=== PATIENT | male | born 1945 | race Caucasian/White ===

== ENCOUNTER → 2018-05-05 | Outpatient (CLI) | payer MEDICARE, OTHER ==
[~2018-05-05] MED LIST: CIPRO250 M2 PO; COZAAR 25 MG TA25 M1 PO; DUONEB 2.5-0.5 M3 ML INH; FLEXERIL PO; FLOMAX0.4 MG PO; HYDROCODONE-AP1 EAC6 PO; LEVSIN0.125 MG PO; MEDROLDOSEPACK PO; MOBIC15 MG PO; NEURONTIN 300300 M1 PO; OMEPRAZOLE 20 M20 M1 PO; PREDNISONE50 MG PO; PROAIR HFA8.5 GM INH; PROSCAR 5MG TABL5 MG PO
--- NOTE | 2018-05-23 10:00 | PAINCON ---
[address] [address] PAIN MANAGEMENT CONSULTATION Name: ABBY BEAR Room: [facility] NaomiJs#: [id number] Admission: 05/05/18 Attend Phys: Jamshid Contreras MD Discharge: Date of : 49 Report #: [id number] THIS REPORT FOR: //name// CC: Amanda Contreras DATE OF SERVICE: 05/05/2018 CHIEF COMPLAINT: Pain in the hands and neck. It is radiating from my shoulder, mostly on the right. FOLLOWUP HISTORY: The patient is a 72-year-old gentleman who has been referred to the pain clinic for evaluation. The patient has been noticing pain and discomfort over the last few months, which has gotten quite a bit worse. He has had some discomfort for years. At this juncture, he has noticed that his pain increased. He has undergone physical therapy with minimal relief. He has tried Flexeril, meloxicam as well as Tylenol. In spite of this, he continues to have pain and discomfort, which is disconcerting. He has been told that he has degenerative disk disease in his cervical spine. He has recently had an MRI, which confirms those findings. He continues to have persistent pain in his neck, radiating down the right shoulder associated with numbness and tingling. Denies any trauma. Does have some muscle tension and discomfort in the posterior portion of his head on the left and right side. His MRI showed that he did have some herniated disk at C3-C4, C4-C5, C5-C6. ALLERGIES: TETRACYCLINE. CURRENT MEDICATIONS: 1. Finasteride 5 mg daily. 2. Fish oil 1200 mg 1 capsule. 3. Vitamin D3 1000 units 1 capsule. 4. Zinc 100 mg. 5. Potassium 75 mg. 6. Meloxicam 15 mg. 7. Omeprazole 20 mg. 8. Losartan 25 mg 1/2 tablet daily. 9. Cyclobenzaprine 5 mg p.r.n. for spasms. The patient has stopped taking this medication. 10. The patient has used a Medrol Dosepak in the past. PAST MEDICAL HISTORY: 1. Asthma. 2. Hypertension. 3. Joint disease/arthritis. 4[place] [address] PAIN MANAGEMENT CONSULTATION Name: ABBY BERA Room: [facility]#: [id number] Admission: 05/05/18 Attend Phys: Jamshid Contreras MD Discharge: Date of : 49 Report #: [id number] PAST SURGICAL HISTORY: 1. Elbow surgery. 2. Rotator cuff repair. 3. Right hand surgery involving the left thumb, which was caught in a press. 4. Lithotripsy. 5. Right carpal tunnel surgery. 6. Right hand trigger release 7. Bilateral elbow surgeries. 8. Left foot surgery. 9. Cataract surgery. 10. Bilateral Lasix surgeries. 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 REVIEW OF SYSTEMS: Generally good health, fatigue, weakness, headaches, wears glasses, cataracts/glaucoma, shortness of breath, kidney stones, numbness and tingling sensation, lightheadedness, dizziness, recurrent headaches, back pain, joint stiffness, joint pain. LABORATORY DATA: Cervical spine MRI from [facility] dated 04/05/2018 indicates: 1. C2-C3, mild disk desiccation. Mild facet arthropathy. No stenosis. 2. C3-C4, mild disk desiccation, 1-2 mm disk protrusion. Facet arthropathy. No stenosis. 3. C4-C5, disk desiccation, 2 mm disk protrusion. Central canal patent. Facet arthropathy. No stenosis. 4. C5-C6, disk desiccation. Posterior annular fissure, 2 mm disk protrusion. Facet arthropathy. Mild to moderate left foraminal stenosis. 5. C6-C7, disk desiccation. No bulging or protrusion. Facet arthropathy. No stenosis. 6. C7-T1, no significant disk bulge or herniation. No significant spinal stenosis. PAIN CLINIC ASSESSMENT/PQRS: 1. History of osteoarthritis. The patient is not being treated for osteoarthritis. The patient has not been treated for rheumatoid arthritis. 2. Height 5 feet 8 inches, weight 165 pounds, BMI is 25.2. 3. Vital Signs: Blood pressure 155/90, heart rate 96, respiratory rate 16, room air saturation 96%, temperature 98.2. 4. Pain score 2/10. 5. Fall history: The patient has not fallen in the last 3 months. 6. Blood thinner. The patient is not on a blood thinning medication. 7. Hypertension. The patient is being treated for hypertension. 8. Opioid therapy greater than 6 weeks. The patient is not on opioid regimen. 9. Risk assessment tool. 10. [place] [address] PAIN MANAGEMENT CONSULTATION Name: ABBY BEAR: [facility]#: [id number] Admission: 05/05/18 Attend Phys: Jamshid Contreras MD Discharge: Date of : 49 Report #: [id number] 11. Recreational drug use. The patient denies use of recreational drugs. 12. Tobacco: The patient denies use of tobacco. 13. Alcohol: The patient denies use of alcoholic beverages. PHYSICAL EXAMINATION: GENERAL: The patient is a well-developed, well-nourished white male. Appears his stated age. He is alert and oriented x 3. Affect is appropriate. Speech is fluent. The patient notes some tender areas in the left as well as in the right occipital area. Complains of pain that radiates down his neck into the right shoulder and down into the right arm. Muscle strength judged to be 5/5 for the major muscle groups in the upper extremity. Deep tendon reflexes are difficult to assess secondary to the patient's inability to comply. The patient without significant scoliosis, kyphosis or lordosis. The patient has a mechanically amputated thumb. He states that he got this caught in a press. Lower extremity muscle strength is judged to be 5/5 for the major muscle groups. Deep tendon reflexes are difficult to assess secondary to patient's inability to comply. Forward bending was not problematic. Lumbar extension were limited and within normal limits. IMPRESSION: 1. Pain in the neck with radiation down to the right arm and shoulder. 2. Asthma. 3. Hypertension. 4. Joint disease/arthritis. 5. Renal stones. RECOMMENDATIONS: We discussed treatment options with the patient. Risks and benefits of an epidural steroid injection were discussed. At this juncture, we will try a conservative approach. The patient will try a Medrol Dosepak at this juncture. He will also be given a script for Neurontin. He will take it 1 tablet p.o. t.i.d. The patient has been given a schedule to slowly increase his medication to lessen the likelihood of problems. He will follow up in the near future. If his pain continues to be problematic, we will consider the possibility of a cervical epidural steroid injection. We would like to thank you for letting us participate in his care. We hope he continues to improve. <ELECTRONICALLY SIGNED> By: Jamshid Contreras MD 05/23/18 1000 1412 1804N. Kang Contreras MD /nt
== END ==
LOC: M.PC 04:56
DX: M54.2 Cervicalgia (principal); M79.601 Pain in right arm; M25.511 Pain in right shoulder; J45.909 Unspecified asthma, uncomplicated; I10 Essential (primary) hypertension; M19.90 Unspecified osteoarthritis, unspecified site; N20.0 Calculus of kidney

== ENCOUNTER → 2018-08-31 | Outpatient (CLI) | payer MEDICARE, OTHER | LOC: M.RAD 08:17 | DX: R13.10 Dysphagia, unspecified (principal) ==

== ENCOUNTER 2020-09-07 17:59 | Observation (INO) | payer MEDICARE, OTHER ==
[~2020-09-07] VITALS: Ht 170.2 cm; Wt 80.7 kg
[2020-09-07 18:21] VITALS: BP 157/94
[2020-09-07] MEDS ORDERED: ASA81BEC PO (18:28)
[2020-09-07] MEDS ORDERED: FISH OIL 1,0001 EAC9 PO (18:29)
[2020-09-07] MEDS ORDERED: SUPER THERAVIT1 EACH PO (18:29)
[2020-09-07 18:30] LABS: ABSOLUTE EOSINOPHILS 0.1 thou/uL (0.0-0.7); ABSOLUTE LYMPHOCYTES 1.8 thou/uL (0.8-5.3); ABSOLUTE MONOCYTES 0.6 thou/uL (0.0-1.2); ABSOLUTE NEUTROPHILS 5.5 thou/uL (1.6-8.1); BASOPHILS 0.6 %; EOSINOPHILS 1.4 %; HEMATOCRIT 46.3 % (42.0-52.0); HEMOGLOBIN 15.9 gm/dL (14.0-18.0); LYMPHOCYTES 22.7 %; MCH 32.7 pg (26.0-34.0); MCHC 34.3 g/dL (28.0-37.0); MCV 95.4 fL (80.0-100.0); MONOCYTES 7.1 %; MPV 7.6 fl. (7.2-11.1); NUCLEATED RBCS 0 /100WBC; PLATELET COUNT* 235 thou/uL (150-400); POLYS 68.2 %; RBC 4.85 mil/uL (4.50-6.00); RDW-CV 12.7 % (10.5-14.5)
[2020-09-07 18:42] LABS: APTT 24.5 Seconds (25.0-31.3); PROTIME 10.2 Seconds (9.20-11.50)
[2020-09-07 18:48] LABS: ALBUMIN 3.8 g/dL (3.4-5.0); CALCIUM 9.2 mg/dL (8.5-10.1); CREATININE 1.1 mg/dL (0.6-1.3); MAGNESIUM 2.2 mg/dL (1.8-2.4); TOTAL BILIRUBIN 0.3 mg/dL (<0.1-1.0); TOTAL PROTEIN 7.8 g/dL (6.4-8.2)
[2020-09-07 21:30] VITALS: BP 144/84
[2020-09-07 21:32] VITALS: BP 148/102
[2020-09-08 01:07] VITALS: BP 125/78
[2020-09-08 04:32] VITALS: BP 131/86
[2020-09-08 08:00] VITALS: BP 151/79
[2020-09-08 10:56] LABS: ABSOLUTE EOSINOPHILS 0.1 thou/uL (0.0-0.7); ABSOLUTE LYMPHOCYTES 1.3 thou/uL (0.8-5.3); ABSOLUTE MONOCYTES 0.5 thou/uL (0.0-1.2); ABSOLUTE NEUTROPHILS 4.7 thou/uL (1.6-8.1); BASOPHILS 0.4 %; EOSINOPHILS 1.1 %; HEMATOCRIT 41.8 % (42.0-52.0); HEMOGLOBIN 14.2 gm/dL (14.0-18.0); LYMPHOCYTES 20.1 %; MCH 32.2 pg (26.0-34.0); MCHC 33.9 g/dL (28.0-37.0); MCV 95.2 fL (80.0-100.0); MONOCYTES 7.2 %; MPV 7.7 fl. (7.2-11.1); NUCLEATED RBCS 0 /100WBC; PLATELET COUNT* 227 thou/uL (150-400); POLYS 71.2 %; RBC 4.39 mil/uL (4.50-6.00); RDW-CV 12.4 % (10.5-14.5); WBC 6.6 thou/uL (4.0-11.0)
[2020-09-08 11:16] LABS: ALBUMIN 3.3 g/dL (3.4-5.0); ALKALINE PHOSPHATASE 72 U/L (46-116); ANION GAP 7 mmol/L (7-16); BUN 14 mg/dL (7-18); CHLORIDE 109 mmol/L (98-107); CO2 26 mmol/L (21-32); GLUCOSE 120 mg/dL (70-99); SGOT 21 U/L (15-37); SGPT 24 U/L (30-65); SODIUM 142 mmol/L (136-145); TOTAL BILIRUBIN 0.4 mg/dL (<0.1-1.0); TOTAL PROTEIN 6.8 g/dL (6.4-8.2); TROPONIN-I LEVEL <0.06 ng/mL (<0.06)
[2020-09-08 13:04] VITALS: BP 146/91
[2020-09-08 16:14] VITALS: BP 125/80
[2020-09-08 20:00] VITALS: BP 142/92
[2020-09-09] VITALS: BP 130/86
[2020-09-09 04:00] VITALS: BP 140/81
[2020-09-09 05:23] LABS: ANION GAP 9 mmol/L (7-16); CALCIUM 9.8 mg/dL (8.5-10.1); CHLORIDE 107 mmol/L (98-107); CHOLESTEROL 183 mg/dL (<200); CO2 26 mmol/L (21-32); CREATININE 0.9 mg/dL (0.6-1.3); GLUCOSE 89 mg/dL (70-99); HDL CHOLESTEROL 42 mg/dL (>40); LDL CHOLESTEROL 126 mg/dL (<100); POTASSIUM 3.8 mmol/L (3.5-5.1); SODIUM 142 mmol/L (136-145); TC:HDL 4.4 Ratio (Not establshd); TRIGLYCERIDE 77 mg/dL (<150); VLDL 15 mg/dL (<40)
[2020-09-09 05:43] LABS: BUN 15 mg/dL (7-18)
[2020-09-09 05:44] LABS: SERUM ASSESSMENT Clear
[2020-09-09 08:00] VITALS: BP 149/95
--- NOTE | 2020-09-09 10:23 | EKG ---
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 Writer: LUIS : 1945 Requested By: Baljit Boggs Order Number: [id number] MD: Nigel Alvarenga Measurements Intervals [place] Rate: 117 P: 46 VT: 165 QRS: -88 QRSD: 92 T: 39 QT: 320 QTc: 447 Interpretive Statements Sinus tachycardia Probable left atrial enlargement Left anterior fascicular block Abnormal R-wave progression, late transition Baseline wander in lead(s) V1,V2 Compared to ECG 06/20/2016 01:32:50 no change Electronically Signed On 09-09-2020 10:23:17 BIRTH ATTENDANT by Nigel Alvarenga [email or web address] <ELECTRONICALLY SIGNED> By: Nigel Alvarenga MD, [facility] 09/09/20 1023 10 10 Nigel Alvarenga MD, [facility] /EPI
--- NOTE | 2020-09-09 10:29 | EKG ---
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: : 1945 Requested By: Huber Delgado Order Number: [id number] MD: Nigel Alvarenga Measurements Intervals [place] Rate: 88 P: 43 FL: 174 QRS: -77 QRSD: 99 T: 16 QT: 374 QTc: 453 Interpretive Statements Sinus rhythm Left anterior fascicular block Low voltage, extremity leads Abnormal R-wave progression, late transition Compared to ECG 09/07/2020 18:11:29 Low QRS voltage now present Sinus tachycardia no longer present Electronically Signed On 09-09-2020 10:29:29 EQUIPMENT RECORDS SUPERVISOR by Nigel Alvarenga [email or web address] <ELECTRONICALLY SIGNED> By: Nigel Alvarenga MD, FACC 09/09/20 1029 1126 1126 Nigel Alvarenga MD, [facility] /EPI
[2020-09-09 12:00] VITALS: BP 155/100
[2020-09-09 16:00] VITALS: BP 119/88
--- NOTE | 2020-09-09 17:23 | CARDNUC ---
[place] [address] CARDIAC NUCLEAR IMAGING REPORT Name: CHEMAABBY Pippa Room: [address] Kaylene#: [id number] Admission: 09/07/20 Attend Phys: Ivette Rodriguez, Discharge: Date of : 49 Date of Service: 09/09/20 1722 Report #: [id number] THIS REPORT FOR: cc: Amanda Cheung Ahmad W. DO Liston, Michael J. MD [facility] ~ APPROVED REPORT Study performed: 09/09/2020 12:50:53 Exam: Nuclear Stress Test Indication: Left sided chest pain, dyspnea, dizziness, Sinus Tachycardia. Patient Location: In-Patient Room #: [facility] Stress Tech: Yudy Sanches Stress Nurse: Dylon Tyler Tech:KATI Jarrell Ht: 5 ft 7 in Wt: 165 lbs BSA: 1.86 m2 BMI: 25.84 Medical History Medical History: Left sided dull chest pain, dyspnea, Sinus tachycardia, dizziness, increased cholesterol score, LAFB, HTN. Medications: ASA 81 Mg, Cozaar, Fish Oil. Allergies: Tetracyclines. Cardiac Risk Factors: Age, HTN, SOB, Sinus tachycardia, LAFB. Previous Cardiac Procedures: None Pretest Chest Pain Characteristics: No chest pain Exercise History: Indeterminate Physical Disabilities: Weakness, slow shuffled gait. Stress Test Details Stress Test: Pharmacologic stress was paired with low level exercise. Reason for pharmacologic stress test: Weakness, slow shuffled gait.. HR Resting HR: 103 bpm Max Heart Rate (APMHR): 147 bpm Max HR Achieved: 152 bpm Target HR (85% APMHR): 124 [place] [address] CARDIAC NUCLEAR IMAGING REPORT Name: ABBY BEAR [address] [id number] Admission: 09/07/20 Attend Phys: Ivette Rodriguez, Discharge: Date of : 49 Date of Service: 09/09/20 1722 Report #: [id number] % of APMHR: 103 Recovery HR: 121 bpm BP Resting BP: 158/94 mmHg Max BP: 174/88 mmHg ECG Resting ECG: Sinus Rhythm Stress ECG: Sinus Tachycardia ST Change: None Arrhythmia: None Recovery ECG: Sinus Rhythm Recovery ST Change: None Recovery Arrhythmia: None Clinical Reason for Termination: Completed protocol Stress Symptoms: Dyspnea, 4/10 left sided chest pain, lightheaded, dizzy, nausea. Exercise duration: 4 min 00 sec Exercise capacity: 2.30 METs The patient tolerated walking Lexiscan protocol without significant cardiac symptoms. Nurse Comments A 75 year old male inpatient presented for a walking Lexiscan r/t chest pain, dyspnea, tachycardia, dizziness/lightheadedness. Test tolerated with some assistance for instability at test end. Recovery unremarkable. Patient was stable with continued sinus tachycardia and stated he felt good when escorted via wheelchair to Nuclear Medicine for imaging. Stress ECG Conclusion The baseline twelve-lead EKG shows sinus rhythm without significant ST segment or T wave abnormality. EKGs obtained during and post walking Lexiscan protocol show sinus rhythm and sinus tachycardia with no significant ST segment changes when compared to baseline. There were no stress-induced arrhythmias. NM EXAM: Myocardial Perfusion REST/STRESS Imaging Protocol: Rest Tc-99m/Stress Tc-99m 1 day Resting Data Rest SPECT myocardial perfusion imaging was performed in supine position 30 minutes following the intravenous injection of 11.4 [place] [address] CARDIAC NUCLEAR IMAGING REPORT Name: ABBY BEAR Room: [address]#: [id number] Admission: 09/07/20 Attend Phys: Ivette Rodriguez, Discharge: Date of : 49 Date of Service: 09/09/20 1722 Report #: [id number] of Tc-99m Sestamibi. Time of rest injection: 1150 Date: 09/09/2020 The images were gated to evaluate regional wall motion and calculate left ventricular ejection fraction. Administration Route: IV Administration Site: Left AC Pharmacologic Stress Pharmacologic stress test was performed by injecting Regadenoson 0.4 mg IV push followed by the intravenous injection of 34.9 mCi of Tc-99m Sestamibi. Time of stress injection: 1330 Date: 09/09/2020 Administration Route: IV Administration Site: Left AC Gated Stress SPECT was performed 40 minutes after stress injection. The images were gated to evaluate regional wall motion and calculate left ventricular ejection fraction. Prone imaging was performed. Study Quality Study: Good Artifact: No artifact Study Data At rest, the left ventricular ejection fraction was 85%.. Post stress, the left ventricular ejection was 82%.. TID = 1.06. Perfusion Perfusion images obtained at rest and post walking Lexiscan stress show uniform uptake of the radioisotope throughout the myocardium. Wall Motion Normal left ventricular wall motion. Nuclear Conclusion ECG Findings: negative for ischemia Clinical Findings: negative for ischemia Nuclear Findings: negative for ischemia Exercise Capacity: not assessed Left Ventricular Function: normal Risk Study: low Perfusion study show no defect to suggest infarct or ischemia. Left ventricular systolic function appears normal [place] [address] CARDIAC NUCLEAR IMAGING REPORT Name: ABBY BEAR Room: [address] Kaylene#: [id number] Admission: 09/07/20 Attend Phys: Ivette Rodriguez, Discharge: Date of : 49 Date of Service: 09/09/20 1722 Report #: [id number] is a low risk study. <Conclusion> The baseline twelve-lead EKG shows sinus rhythm without significant ST segment or T wave abnormality. EKGs obtained during and post walking Lexiscan protocol show sinus rhythm and sinus tachycardia with no significant ST segment changes when compared to baseline. There were no stress-induced arrhythmias. <ELECTRONICALLY SIGNED> By: Yoandy Cleveland MD, FACC 09/09/201721 21 21 Yoandy Cleveland MD, FACC /INF
[2020-09-09 17:59] VITALS: BP 155/100
--- NOTE | 2020-09-09 19:17 | NUR ---
VS CHARTED, SR ON TELE, ROOM AIR, UP AD ML, CARDIAC STRESS TEST NEGATIVE, HOURLY ROUNDING PERFORMED, POSESSIONS AND CALL LIGHT WITHIN REACH, REC DISCHARGE ORDERS, REVIEWED WITH PATIENT, NO SCRIPTS GIVEN, TELE MONITOR AND IVS REMOVED WITHOUT COMPLICATION, PATIENT TAKEN IN WHEELCHAIR BY NURSING STAFF TO FRONT DOOR, PICKED UP BY SPOUSE IN FAMILY CAR
--- NOTE | 2020-09-10 09:24 | CON ---
[address] [address] CONSULTATION Name: ABBY BEAR Room: [address] Nicky Maurice#: [id number] Admission: 09/07/20 Attend Phys: Ivette Rodriguez MD Discharge: 09/09/20 Date of : 49 Report #: [id number] THIS REPORT FOR: cc: Amanda Cheung Ahmad W. DO ~ Yoandy Cleveland MD [facility] CARDIOLOGY CONSULT INDICATION: Chest pain. HISTORY OF PRESENT ILLNESS: The patient is a very pleasant 75-year-old gentleman with no prior history of cardiac disease. His last cardiac evaluation was 5 years ago after having an episode of chest discomfort that was unremarkable. The patient states yesterday while walking on the treadmill in the morning, he had some left of sternum chest discomfort described as a dull ache without radiation. He did have shortness of breath, but no diaphoresis. The pain resolved when he quit walking on the treadmill. Later in the day, the patient was not feeling well. His took his blood pressure and it was noted to be elevated and he was brought to the Emergency Room. In the Emergency Room, his EKG shows sinus tachycardia without significant ST-segment or T-wave abnormality. His initial troponin was unremarkable. The patient reports a history of hypertension for which he takes medication. He says his cholesterol was borderline. He denies any history of diabetes. His father had a heart attack at age 93. He is a lifelong nonsmoker. PAST MEDICAL HISTORY: 1. Bilateral elbow surgery. 2. Right rotator cuff surgery. 3. Hand surgery on multiple occasions. 4. Lithotripsy x 2. 5. Left bunion surgery. 6. Hiatal hernia. 7. LINX band. FAMILY HISTORY: Father had heart attack at age 93. Otherwise, no other cardiac history. SOCIAL HISTORY: The patient does not smoke. He does not drink alcohol. He is . ALLERGIES: TETRACYCLINE. CURRENT MEDICATIONS: Losartan 25 mg daily, aspirin 81 mg daily, fish oil 1 capsule daily, multivitamin 1 tablet daily, meloxicam 15 mg daily, finasteride 5 [place] [address] CONSULTATION Name: ABBY BEAR Room: [address]#: [id number] Admission: 09/07/20 Attend Phys: Ivette Rodriguez MD Discharge: 09/09/20 Date of : 49 Report #: [id number] REVIEW OF SYSTEMS: A 14-point review of systems is positive for dyspnea on exertion. Otherwise, unremarkable. PHYSICAL EXAMINATION: VITAL SIGNS: Blood pressure 151/79, pulse is 89 and regular. GENERAL: This is a pleasant gentleman who is in no distress. Mood and affect appropriate. HEENT: The patient is wearing glasses. Extraocular muscles intact. Mucous membranes are moist. NECK: Shows no jugular venous distention. There are no carotid bruits. CHEST: Reveals clear lung neal without wheezes or rales. CARDIOVASCULAR: Reveals a regular rhythm, normal S1 and S2. I do not appreciate gallop or murmur. ABDOMEN: Reveals normal bowel sounds. The abdomen is soft, nontender. EXTREMITIES: Shows no edema. Peripheral pulses are 2+ and easily palpable. SKIN: Warm and dry. LABORATORY DATA: A 12-lead EKG shows sinus tachycardia without significant ST-segment or T-wave abnormality. Labs are reviewed. Troponin is unremarkable. IMPRESSION AND RECOMMENDATIONS: 1. Chest discomfort with features to suggest progressive/unstable angina. We will recommend a noninvasive stress testing and further intervention pending the results of that test. 2. Hypertension. Continue the patient's losartan. 3. Borderline dyslipidemia. Check fasting lipid profile. <ELECTRONICALLY SIGNED> By: Yoandy Cleveland MD, FACC 09/10/20 0924 1222 1233Yoandy Cleveland MD, FACC /nt
== END 2020-09-09 18:25 | disposition home or self-care (01) ==
LOC: M.ERS 17:59 → M.2W 19:02 → M.TBA-ER 19:02 → M.2W 21:46
PROVIDERS: Emergency Medicine Emergency Medical Services; Internal Medicine; Internal Medicine Cardiovascular Disease; ADMIT Internal Medicine; ATTEND Internal Medicine
DX: R00.0 Tachycardia, unspecified (principal); R07.89 Other chest pain; I10 Essential (primary) hypertension; R42 Dizziness and giddiness; E78.5 Hyperlipidemia, unspecified; Z79.82 Long term (current) use of aspirin; Z79.899 Other long term (current) drug therapy; Z20.828 Contact with and (suspected) exposure to other viral communicable diseases

== ENCOUNTER 2021-03-27 09:26 | Emergency (ER) | payer MEDICARE, OTHER ==
[~2021-03-27] VITALS: Ht 170.2 cm; Wt 73.9 kg
[~2021-03-27 09:26] MED LIST changes: +ASA81BEC PO; +FISH OIL 1,0001 EAC9 PO; +SUPER THERAVIT1 EACH PO
--- NOTE | 2021-03-27 10:17 | EKG ---
[place] [address] ELECTROCARDIOGRAM REPORT Name: ABBY BEAR Room: [facility]#: [id number] Admission: Attend Phys: Discharge: Date of : 49 Date of Service: 03/27/21 1003 Report #: [id number] THIS REPORT FOR: //name// [facility] ED Test Date: 2021-03-27 Test Time: 10:03:21 Pat Name: ABBY BEAR Department: Room: Gender: Barrel Raiser Helper: : 1945 Requested By: Baljit Boggs Order Number: [id number] MD: Nigel Alvarenga Measurements Intervals [place] Rate: 94 P: 32 TX: 151 QRS: -79 QRSD: 82 T: 40 QT: 326 QTc: 408 Interpretive Statements Sinus rhythm Probable left atrial enlargement Left anterior fascicular block Borderline low voltage, extremity leads Abnormal R-wave progression, late transition Compared to ECG 09/08/2020 11:26:48 No significant changes Electronically Signed On 03-27-2021 10:17:01 CDT by Nigel Alvarenga [email or web address] <ELECTRONICALLY SIGNED> By: Nigel Alvarenga MD, [facility] 03/27/21 1017 1003 1003 Nigel Alvarenga MD, [facility] /EPI
[2021-03-27 10:31] LABS: ABSOLUTE LYMPHOCYTES 0.5 thou/uL (0.8-5.3); ABSOLUTE MONOCYTES 0.5 thou/uL (0.0-1.2); ABSOLUTE NEUTROPHILS 2.4 thou/uL (1.6-8.1); BASOPHILS 0.5 %; EOSINOPHILS 0.1 %; HEMATOCRIT 41.9 % (42.0-52.0); HEMOGLOBIN 14.1 gm/dL (14.0-18.0); LYMPHOCYTES 15.1 %; MCH 31.8 pg (26.0-34.0); MCHC 33.6 g/dL (28.0-37.0); MCV 94.4 fL (80.0-100.0); MONOCYTES 13.6 %; MPV 8.2 fl. (7.2-11.1); NUCLEATED RBCS 0 /100WBC; PLATELET COUNT* 135 thou/uL (150-400); POLYS 70.7 %; RBC 4.44 mil/uL (4.50-6.00); RDW-CV 13.1 % (10.5-14.5); WBC 3.4 thou/uL (4.0-11.0)
[2021-03-27 10:43] LABS: CALCIUM 8.4 mg/dL (8.5-10.1); CREATININE 1.2 mg/dL (0.6-1.3); POTASSIUM 4.4 mmol/L (3.5-5.1)
[2021-03-27 10:47] LABS: ALBUMIN 3.3 g/dL (3.4-5.0); TOTAL BILIRUBIN 0.3 mg/dL (<0.1-1.0)
[2021-03-27] MEDS ORDERED: ZOFRAN ODT4 MG DISSOLVE (11:12)
[2021-03-27 11:30] VITALS: BP 138/83
== END 2021-03-27 11:31 | disposition home or self-care (01) ==
LOC: M.ERS 09:26
PROVIDERS: Emergency Medicine Emergency Medical Services
DX: U07.1 COVID-19 (principal); Z98.890 Other specified postprocedural states; Z86.16 Personal history of COVID-19; Z88.1 Allergy status to other antibiotic agents

== ENCOUNTER 2021-03-31 14:43 | Inpatient (IN) | payer MEDICARE, OTHER ==
[~2021-03-31] VITALS: Ht 170.2 cm; Wt 72.6 kg
[~2021-03-31 14:43] MED LIST changes: +ZOFRAN ODT4 MG DISSOLVE
[2021-03-31 14:47] VITALS: BP 153/98
[2021-03-31 15:14] LABS: ABSOLUTE LYMPHOCYTES 0.3 thou/uL (0.8-5.3); ABSOLUTE MONOCYTES 0.3 thou/uL (0.0-1.2); ABSOLUTE NEUTROPHILS 3.4 thou/uL (1.6-8.1); BASOPHILS 0.5 %; HEMATOCRIT 42.2 % (42.0-52.0); HEMOGLOBIN 14.4 gm/dL (14.0-18.0); LYMPHOCYTES 8.4 %; MCH 31.7 pg (26.0-34.0); MCHC 34.2 g/dL (28.0-37.0); MCV 92.9 fL (80.0-100.0); MONOCYTES 6.4 %; MPV 8.2 fl. (7.2-11.1); NUCLEATED RBCS 0 /100WBC; PLATELET COUNT* 142 thou/uL (150-400); POLYS 84.7 %; RBC 4.54 mil/uL (4.50-6.00); RDW-CV 12.8 % (10.5-14.5); WBC 4.1 thou/uL (4.0-11.0)
[2021-03-31 15:30] LABS: CALCIUM 8.7 mg/dL (8.5-10.1); CREATININE 1.2 mg/dL (0.6-1.3); POTASSIUM 4.1 mmol/L (3.5-5.1)
[2021-03-31 15:38] LABS: ALBUMIN 2.8 g/dL (3.4-5.0); TOTAL BILIRUBIN 0.4 mg/dL (<0.1-1.0); TOTAL PROTEIN 7.2 g/dL (6.4-8.2)
[2021-03-31 16:14] VITALS: BP 147/89
--- NOTE | 2021-03-31 17:12 | EKG ---
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: MAYUR : 1945 Requested By: Juan José Connell Order Number: [id number] MD: Jerad Palmer Measurements Intervals [place] Rate: 103 P: 26 AL: 132 QRS: -78 QRSD: 85 T: 22 QT: 312 QTc: 409 Interpretive Statements Sinus tachycardia Abnormal R-wave progression, late transition Inferior infarct, old Compared to ECG 03/27/2021 10:03:21 Myocardial infarct finding now present Sinus rate has increased Left anterior fascicular block no longer present Electronically Signed On 03-31-2021 17:12:02 CDT by Jerad Palmer [email or web address] <ELECTRONICALLY SIGNED> By: Jerad Palmer MD, [facility] 03/31/21 1712 1443 1443 Jerad Palmer MD, [facility] /EPI
[2021-03-31 18:23] VITALS: BP 115/65
[2021-03-31 20:00] VITALS: BP 110/68
[2021-04-01 00:36] VITALS: BP 133/77
[2021-04-01 05:02] VITALS: BP 149/87
--- NOTE | 2021-04-01 05:16 | NUR ---
ASSUMED PT CARE AT APPROX. 1930. PT IS A/OX4 AND DROWSY. PT VSS. PT HAD INTERMITTENT CHILLS DURING THE NOC. PT IS AFEBRILE. DURING THE NOC THE PT'S O2 SAT DECREASED WITH MINIMAL ACTIVITY. PT PLACED ON NON-REBREATHER MASK AT 15L PER RT R/T O2 SATS AT 80. PT O2 SATS INCREASED TO 93-94%. ASSESSMENTS COMPLETE CHARTED. FALL PRECAUTIONS IN PLACE FOR SAFETY. CALL LIGHT WITHIN REACH. WILL CONT. TO MONITOR.
[2021-04-01 07:50] VITALS: BP 117/66
[2021-04-01 08:31] LABS: ABSOLUTE LYMPHOCYTES 0.3 thou/uL (0.8-5.3); ABSOLUTE MONOCYTES 0.2 thou/uL (0.0-1.2); ABSOLUTE NEUTROPHILS 2.3 thou/uL (1.6-8.1); BASOPHILS 0.1 %; HEMATOCRIT 41.2 % (42.0-52.0); HEMOGLOBIN 14.3 gm/dL (14.0-18.0); MCHC 34.7 g/dL (28.0-37.0); MCV 92.3 fL (80.0-100.0); MONOCYTES 6.2 %; MPV 8.3 fl. (7.2-11.1); NUCLEATED RBCS 0 /100WBC; PLATELET COUNT* 160 thou/uL (150-400); POLYS 81.7 %; RBC 4.46 mil/uL (4.50-6.00); RDW-CV 12.9 % (10.5-14.5); WBC 2.9 thou/uL (4.0-11.0)
[2021-04-01 08:49] LABS: CALCIUM 8.4 mg/dL (8.5-10.1); CREATININE 1.1 mg/dL (0.6-1.3); POTASSIUM 3.7 mmol/L (3.5-5.1)
[2021-04-01 12:33] VITALS: BP 124/72
--- NOTE | 2021-04-01 14:25 | NUR ---
Covid positive. CM spoke with Pt's via phone. Pt is normally active and independent. No DME. No hx of HH or SNF. states that she was sick before Pt, but was never tested for Covid, she anticipates that she was likely positive. Neither are vaccinated. Pt on 15L NRB, continue to wean. Ex ox to be completed prior to dc.
--- NOTE | 2021-04-01 14:39 | NUR ---
Infection Control: Per [facility] patient has a positive Covid PCR Test on 03/24/21.
[2021-04-01 16:49] VITALS: BP 101/57
--- NOTE | 2021-04-01 16:53 | NUR ---
PATIENT RESTING IN BED. PATIENT DENIES ANY PAIN. PATIENT HAS O2 ON AT 15LHFC WITH 15L NRB MASK. PATIENT HAS O2 SATS IN THE 90'S. PATIENT IS SHORT OF AIR AND DESATS WITH ACTIVITY. RICK CATHETER PLACED WITH COUDE CATHETER. PATIENT HAS POOR APPETITE. PATIENT HAS SLEPT ON SIDES AND TURNS INDEPENDENTLY. PATIENT DENIES ANY NEEDS AT THIS TIME. CALL LIGHT WITHIN REACH.
[2021-04-01 20:00] VITALS: BP 122/77
[2021-04-01 21:57] LABS: CALCIUM 8.5 mg/dL (8.5-10.1); POTASSIUM 4.1 mmol/L (3.5-5.1); PROTIME 10.8 Seconds (9.20-11.50)
[2021-04-02] VITALS: BP 131/68
[2021-04-02 03:13] VITALS: BP 111/64
[2021-04-02 04:51] LABS: HEMATOCRIT 38.7 % (42.0-52.0); HEMOGLOBIN 13.2 gm/dL (14.0-18.0); MCH 31.9 pg (26.0-34.0); MCHC 34.1 g/dL (28.0-37.0); MCV 93.4 fL (80.0-100.0); MPV 8.5 fl. (7.2-11.1); NUCLEATED RBCS 0 /100WBC; PLATELET COUNT* 176 thou/uL (150-400); RBC 4.15 mil/uL (4.50-6.00); RDW-CV 12.7 % (10.5-14.5); WBC 5.2 thou/uL (4.0-11.0)
[2021-04-02 05:23] LABS: APTT 31.3 Seconds (25.0-31.3); PROTIME 10.8 Seconds (9.20-11.50)
[2021-04-02 05:24] LABS: ALBUMIN 2.4 g/dL (3.4-5.0); CALCIUM 8.7 mg/dL (8.5-10.1); MAGNESIUM 2.4 mg/dL (1.8-2.4); POTASSIUM 4.3 mmol/L (3.5-5.1); TOTAL BILIRUBIN 0.3 mg/dL (<0.1-1.0); TOTAL PROTEIN 6.5 g/dL (6.4-8.2)
[2021-04-02 05:26] LABS: PHOSPHORUS* 2.5 mg/dL (2.5-4.9)
[2021-04-02 06:23] LABS: ABSOLUTE LYMPHOCYTES 0.7 thou/uL (0.8-5.3); ABSOLUTE MONOCYTES 0.1 thou/uL (0.0-1.2); ABSOLUTE NEUTROPHILS 4.4 thou/uL (1.6-8.1); ATYPICAL LYMPHS 3 %; PLATELET ESTIMATE ADEQUATE
[2021-04-02 07:55] VITALS: BP 115/61
[2021-04-02 12:00] VITALS: BP 108/59
--- NOTE | 2021-04-02 15:06 | NUR ---
Anticipate dc in a few days. On 55L HF, continue to wean
[2021-04-02 16:00] VITALS: BP 115/59
--- NOTE | 2021-04-02 17:43 | NUR ---
PATIENT RESTING IN BED. PATIENT REPOSITIONS SELF IN BED. PATIENT WAS UP TO CHAIR THIS AM. O2 SATS FELL TO 85% WHILE IN CHAIR AND PATIENT HAD COMPLAINTS OF BACK PAIN IN CHAIR. PATIENT MOVED BACK TO BED AND O2 SATS IMPROVED TO LOW 90'S. PATIENT HAS BEEN LYING ON SIDES, BUT HE PREFERS HIS LEFT SIDE DUE TO BACK PAIN. PATIENT HAS POOR APPETITE. PATIENT DENIES ANY NEEDS AT THIS TIME. CALL LIGHT WITHIN REACH.
[2021-04-02 21:59] VITALS: BP 103/51
--- NOTE | 2021-04-02 22:06 | CON ---
[address] [address] CONSULTATION Name: CHEMAABBY Pippa Room: [address] IN M.R.#: [id number] Admission: 03/31/21 Attend Phys: Taiwo Nguyen MD Discharge: Date of : 49 Report #: [id number] THIS REPORT FOR: cc: Amanda Cheung Ahmad W. DO Pervez, Adeel MD ~ DATE OF CONSULTATION: 04/01/2021 REQUESTING PHYSICIAN: Taiwo Nguyen MD INDICATION FOR CONSULTATION: Acute hypoxemic respiratory failure secondary to COVID-19. HISTORY OF PRESENT ILLNESS: The patient is a 75-year-old gentleman. He does not have a past medical history of cardiac or respiratory disease. He is not known to be a smoker; however, has had a previous admission with chest pain to this hospital when his stress test was a low probability. The patient has now been symptomatic for the last 7 to 10 days, he has been complaining of increasing shortness of breath. He is also being weak. He is reported to have had a cough and also reported to be febrile. He is reported to be unvaccinated for COVID-19. With these complaints, he presented to the Emergency Room yesterday. Initially, he was maintaining O2 saturation with 4 liters nasal cannula. His CPK was elevated and therefore, he was given IV fluids. There was worsening FiO2 needs today and he was therefore placed on a nonrebreather mask. At the time of my evaluation, the patient was wearing a 100% nonrebreather mask, but he also was saturating 99-100%. Blood pressure is on the lower side at 101/57. Note that he has a history of hypertension, he is on medication for it. The patient was not able to provide a further history or review of systems. PAST MEDICAL HISTORY: Previous admission to this hospital with chest pain, his stress test was low probability at that time; elbow surgery, rotator cuff surgery, hand surgery, lithotripsy, foot surgery, hernia surgery, LINX band. SOCIAL HISTORY: Lifetime nonsmoker. No known history of heavy alcohol use or illegal drug use. CURRENT MEDICATIONS: List in [employer] reviewed. HOME MEDICATIONS: List in [employer] reviewed. ALLERGIES: REPORTED TO BE ALLERGIC TO [place] [address] CONSULTATION Name: ABBY BEAR Room: [address]#: [id number] Admission: 03/31/21 Attend Phys: Taiwo Nguyen MD Discharge: Date of : 49 Report #: [id number] FAMILY HISTORY: No pertinent family history. PHYSICAL EXAMINATION: GENERAL: He was fully awake; however, provided a limited history. VITAL SIGNS: Pulse of 64, blood pressure 101/57 on a nonrebreather mask, he was saturating 99%, respiratory rate 22-23, afebrile with a temperature of 36.6. HEENT: Head is normocephalic and atraumatic. A nonrebreather mask in place. NECK: Does not show raised JVP. CHEST: Breath sounds are bilaterally equal. No added sounds. HEART: Regular. There is no murmur. ABDOMEN: Soft and nontender. EXTREMITIES: Lower extremities show no edema, no calf tenderness. SKIN: Dry and intact. NEUROLOGIC: Moves all extremities bilaterally equally and spontaneously with no focal deficit identified. LABORATORY DATA: The patient's chest x-ray is reviewed and does show extensive bilateral infiltrates consistent with COVID-19. Lab work in [facility] reviewed. ASSESSMENT AND PLAN: 1. Acute hypoxemic respiratory failure secondary to COVID-19, on a high flow nasal cannula rather than a nonrebreather mask and titrate his oxygen and determine his oxygen needs. Meanwhile, recommend prone positioning. If not prone, then recommend sleeping on sides. Recommend avoiding sleeping supine, out of bed to chair if feasible. 2. COVID-19. I would like to determine his current oxygen needs before increasing his scheduled dexamethasone. Therefore, I only ordered one time dose of 8 mg and continue with 6 mg daily at baseline. If he is significantly hypoxemic, then we will consider increasing his baseline dose later on. He is on remdesivir, we will continue. I do not feel strongly either way regarding administering or holding off on convalescent plasma. I recommend giving him Actemra. Unfortunately, Actemra is not available. 3. Pulmonary infiltrates. He does have leukopenia. I would cover him for secondary bacterial infections. I would give him doxycycline; however, HE HAS TETRACYCLINE ALLERGY. Continue ceftriaxone. We will add azithromycin. 4. Evaluation for thromboembolic phenomena. We will do coags including D-dimer tomorrow morning. If elevated, we will do venous Dopplers and then decide as to whether we should do a CTA chest as well or not. However, he will be higher than average risk for IV dye nephrotoxicity. 5. Rhabdomyolysis. His CPK was elevated. This is an indication to administer IV fluids. I requested a CPK to be added to this morning's labs. If CPK is remaining elevated, then we will give more fluids and we will give Lasix at the same time to avoid fluid overload. I requested a magnesium to be added to this morning's labs as well. We will replace if indicated. [place] [address] CONSULTATION Name: ABBY BEAR Room: [address] IN M.R.#: [id number] Admission: 03/31/21 Attend Phys: Taiwo Nguyen MD Discharge: Date of : 49 Report #: [id number] 5. Deep venous thrombosis prophylaxis, Lovenox. 6. Gastrointestinal prophylaxis, Protonix. 7. Clostridium difficile prophylaxis, Lactinex. Thanks for this consultation. <ELECTRONICALLY SIGNED> By: Amos Madrid MD 04/02/21 2206 1606 1930mAos Madrid MD /nt
[2021-04-03 00:34] VITALS: BP 141/81
[2021-04-03 04:19] VITALS: BP 122/70
[2021-04-03 05:27] LABS: ABSOLUTE LYMPHOCYTES 0.3 thou/uL (0.8-5.3); ABSOLUTE MONOCYTES 0.4 thou/uL (0.0-1.2); ABSOLUTE NEUTROPHILS 6.5 thou/uL (1.6-8.1); BASOPHILS 0.1 %; HEMATOCRIT 40.8 % (42.0-52.0); HEMOGLOBIN 13.8 gm/dL (14.0-18.0); LYMPHOCYTES 3.8 %; MCH 31.8 pg (26.0-34.0); MCHC 33.8 g/dL (28.0-37.0); MCV 94.1 fL (80.0-100.0); MONOCYTES 5.4 %; MPV 8.5 fl. (7.2-11.1); NUCLEATED RBCS 0 /100WBC; PLATELET COUNT* 207 thou/uL (150-400); POLYS 90.7 %; RBC 4.34 mil/uL (4.50-6.00); RDW-CV 12.7 % (10.5-14.5); WBC 7.2 thou/uL (4.0-11.0)
[2021-04-03 05:56] LABS: ALBUMIN 2.6 g/dL (3.4-5.0); CALCIUM 8.3 mg/dL (8.5-10.1); CREATININE 1.1 mg/dL (0.6-1.3); MAGNESIUM 2.4 mg/dL (1.8-2.4); POTASSIUM 3.9 mmol/L (3.5-5.1); TOTAL BILIRUBIN 0.5 mg/dL (<0.1-1.0); TOTAL PROTEIN 6.8 g/dL (6.4-8.2)
[2021-04-03 08:55] VITALS: BP 133/71
[2021-04-03 12:46] VITALS: BP 116/67
--- NOTE | 2021-04-03 14:48 | NUR ---
Pt will be inpt for several more days. Pt on 60L HF, not progressing very well. Pt remains a Full Code
[2021-04-03 15:52] VITALS: BP 135/82
--- NOTE | 2021-04-03 17:19 | NUR ---
PATIENT RESTING IN BED. PATIENT WAS ON BIPAPTHIS AM BUT WAS ANXIOUS AND REMOVED FREQUENTLY. PATIENT DESATS INTO 70'S ON ROOM AIR. PATIENT IS ON HEATED HIGH FLOW AT THIS TIME AND IS TOLERATING BETTER WITH SATS IN MID 90'S. PATIENT HAS POOR APPETITE, EATING FRUIT AND SHERBERT. PATIENT HAS RICK CATHETER IN PLACE. PATIENT TURNS SIDE TO SIDE IN BED. PATIENT DENIES ANY NEEDS AT THIS TIME. CALL LIGHT WITHIN REACH.
[2021-04-03 20:29] VITALS: BP 119/60
[2021-04-03 21:23] LABS: URINE BILIRUBIN NEGATIVE (Negative); URINE BLOOD 1+ (Negative); URINE CLARITY CLEAR; URINE COLOR YELLOW; URINE GLUCOSE-RANDOM 2+ (Negative); URINE KETONES NEGATIVE (Negative); URINE LEUKOCYTES NEGATIVE (Negative); URINE NITRITE NEGATIVE (Negative); URINE PROTEIN 1+ (Negative); URINE UROBILINOGEN 0.2 E.U./dl (0.2-1.0)
[2021-04-03 21:38] LABS: MUCUS None Seen strn/LPF (None Seen); SQUAMOUS NONE SEEN /LPF (0-3)
[2021-04-03 21:39] LABS: BACTERIA 1-9 Few /HPF (None Seen); CRYSTALS None Seen /LPF (None Seen); HYALINE CASTS 0-3 Few /LPF (None Seen); URINE RBC 3-10 Few /HPF (0-2); URINE WBC 0-5 Rare /HPF (0-5)
[2021-04-04] VITALS (7 sets, daily range): BP systolic 109–159; BP diastolic 53–74
--- NOTE | 2021-04-04 04:24 | NUR ---
PT ALERT AND ORIETEJENN, DeepaJCRYSTAL - MAX LITERS DAY/BIPAP AT NIGHT. MRSA RESULTS PENDING. RECEIVED ALL MEDS SCHEDULED. STANDBY ASSIST, RICK IN PLACE, CLEAR YELLOW OUTPUT. LABS PENING, WILL CONTINUE TO MONITOR.
[2021-04-04 05:16] LABS: HEMATOCRIT 39.6 % (42.0-52.0); HEMOGLOBIN 13.1 gm/dL (14.0-18.0); MCH 31.5 pg (26.0-34.0); MCHC 33.1 g/dL (28.0-37.0); MCV 95.3 fL (80.0-100.0); MPV 8.8 fl. (7.2-11.1); RBC 4.15 mil/uL (4.50-6.00); RDW-CV 12.9 % (10.5-14.5); WBC 5.9 thou/uL (4.0-11.0)
[2021-04-04 05:19] LABS: CALCIUM 8.3 mg/dL (8.5-10.1); CREATININE 0.9 mg/dL (0.6-1.3); POTASSIUM 4.2 mmol/L (3.5-5.1)
--- NOTE | 2021-04-04 14:52 | NUR ---
No weekend dc planned. Pt on 55L
--- NOTE | 2021-04-04 17:54 | NUR ---
PT A/OX4, LETHARGIC, FLAT AFFECT. PT ON HIFLOW MAXED OUT, WAS UP FOR BREAKFAST BUT WANTED TO LAY BACK DOWN, REFUSES TO PRONE. TYL;ENOL GIVEN PRN X1 ORDERED FOR GENERALIZED ACHES. PT VSS, HE IS TURNING FROM HIS LEFT TO HIS RIGHT SIDE, DISCUSSED PT CARE WITH HIS DAUGHTER.
[2021-04-05] VITALS (7 sets, daily range): BP systolic 86–121; BP diastolic 55–75
--- NOTE | 2021-04-05 04:20 | NUR ---
PT HAVING SOME ANXIETY, ATIVAN GIVEN. O2 SAT 90% WITH HHFC AT MAX. HE STILL HAS RICK WITH CLEAR YELLOW OUTPUT. RECEIVED ALL MEDS SCHEDULED. HE DESATS VERY QUICK WITHOUT MASK ON. WILL CONTINUE TO MONITOR
[2021-04-05 05:33] LABS: HEMATOCRIT 37.4 % (42.0-52.0); HEMOGLOBIN 12.8 gm/dL (14.0-18.0); MCH 31.8 pg (26.0-34.0); MCHC 34.3 g/dL (28.0-37.0); MCV 92.7 fL (80.0-100.0); MPV 8.7 fl. (7.2-11.1); NUCLEATED RBCS 0 /100WBC; PLATELET COUNT* 214 thou/uL (150-400); RBC 4.04 mil/uL (4.50-6.00); RDW-CV 12.9 % (10.5-14.5)
[2021-04-05 06:02] LABS: ALBUMIN 2.3 g/dL (3.4-5.0); CALCIUM 8.3 mg/dL (8.5-10.1); CREATININE 0.8 mg/dL (0.6-1.3); MAGNESIUM 2.6 mg/dL (1.8-2.4); POTASSIUM 4.4 mmol/L (3.5-5.1); TOTAL BILIRUBIN 0.5 mg/dL (<0.1-1.0)
[2021-04-05 06:39] LABS: ABSOLUTE LYMPHOCYTES 0.3 thou/uL (0.8-5.3); ABSOLUTE MONOCYTES 0.1 thou/uL (0.0-1.2); ABSOLUTE NEUTROPHILS 6.7 thou/uL (1.6-8.1); PLATELET ESTIMATE ADEQUATE
[2021-04-05 19:55] LABS: BE 1.1 mmol/L (-2 to +3); PCO2 37.3 mmHg (35.0-45.0); PO2 93.9 mmHg (75.0-100.0); pH 7.443 (7.340-7.450)
--- NOTE | 2021-04-05 21:16 | NUR ---
I ASSUMED CARE OF THE PATIENT AT 0700. HE IS ALERT, AWAKE AND FOLLOWS COMMANDS, HOWEVER VERY AGGITATED WITH HEATED HIGH FLOW AND BIPAP. PATIENT DISROBES AND CLIMBS BED RAILS EVERY 10-30 MIN. BED IS IN THE LOW LOCKED POSITION AND CALL LIGHT IS IN REACH. PATIENT NEEDS ARE MET DURING HOURLY ROUNDING AND TOOTH PAIN IS REPORTED, BUT HE REFUSED ALL ORAL MEDS. ISOLATION IS MAINTAINED. FAMILY HAS BEEN IN TOUCH FOR UPDATES AND SPOKE WITH CHARGE NURSE AND FLOW WORKER WHILE I WAS ON A BREAK. ZYPREKA AND ATIVAN WERE USED FOR AGITATION AND PROVIDED NO RELIEF, BUT MADE SYMPTOMS WORSE. POSITION CHANGES OCCURED OFTEN BY PATIENT. HE D/C'D HIS OWN IV AND A NEW ONE WAS PLACED. BLOOD GLUCOSE WAS MONITORED. PATIENT WAS INTUBATED AND OG WAS PLACED. PLACEMENT HAS BEEN CONFIRMED BY XRAY PRIOR TO USE. DRIPS ARE STARTED AND CHARTED, DR SUAZO WILL BE HERE TONIGHT TO PLACE A CENTRAL LINE. RICK IS IN PLACE FOR RETENTION AND SOFT RESTRAINTS ARE UTILIZED. WILL CONTINUE TO MONOITOR.
[2021-04-06] VITALS (36 sets, daily range): BP systolic 81–124; BP diastolic 53–79
--- NOTE | 2021-04-06 00:26 | NUR ---
ASSUMED CARE OF PT AT 1900. PT IS BEING VENTILATED. PCV-20, PEEP AT 5, FIO2 98 PERCENT, RATE OF 16. PEEP WAS CHANGED TO 10 AND FIO2 TO 75% AT ABOUT 2299. DR SUAZO PLACED AN LEFT IJ AT ABOUT 2144. AT THE BEGINNING OF THE SHIFT PT WAS ON VERSED AT 8 MG/HR. VERSED TURNED DOWN TO 6 MG/HR AT 2044. AT 2339, VERSED DECREASED TO 4 MG/HR. PT WAS ON 100 MCG/HR OF FENTANYL AT THE BEGINNING OF THE SHIFT. AT 2029, FENTANYL DECREASED TO 50 MCG/HR. AT 2044, OG TUBE WAS ADVANCED TO THE 53 CM HUGO AND TAPED. KUB CONFIRMED GOOD PLACEMENT. PT PLACED ON LIS. PT IS SLEEPING WELL. PT APPEARS MAXINE COMFORTABLE. RESPIRATIONS ARE EVEN AND NONLABORED. VSS. PERRLA. RICK IN PLACE. PT IS BEING TURNED EVERY 2 HOURS. WILL CONTINUE TO MONITOR PT.
--- NOTE | 2021-04-06 02:14 | NUR ---
PT BATHED. HAIR WASHED.
[2021-04-06 05:06] LABS: ABSOLUTE LYMPHOCYTES 0.1 thou/uL (0.8-5.3); ABSOLUTE MONOCYTES 0.4 thou/uL (0.0-1.2); ABSOLUTE NEUTROPHILS 8.2 thou/uL (1.6-8.1); BASOPHILS 0.2 %; HEMATOCRIT 36.7 % (42.0-52.0); HEMOGLOBIN 13.2 gm/dL (14.0-18.0); LYMPHOCYTES 1.7 %; MCH 33.5 pg (26.0-34.0); MCHC 35.9 g/dL (28.0-37.0); MCV 93.5 fL (80.0-100.0); NUCLEATED RBCS 0 /100WBC; PLATELET COUNT* 210 thou/uL (150-400); POLYS 94.1 %; RBC 3.93 mil/uL (4.50-6.00); RDW-CV 12.6 % (10.5-14.5); WBC 8.8 thou/uL (4.0-11.0)
[2021-04-06 05:35] LABS: ALBUMIN 2.3 g/dL (3.4-5.0); CALCIUM 8.3 mg/dL (8.5-10.1); MAGNESIUM 2.6 mg/dL (1.8-2.4); POTASSIUM 4.4 mmol/L (3.5-5.1); TOTAL BILIRUBIN 0.7 mg/dL (<0.1-1.0); TOTAL PROTEIN 5.8 g/dL (6.4-8.2)
[2021-04-06 07:33] LABS: BE 1.8 mmol/L (-2 to +3); PCO2 35.5 mmHg (35.0-45.0); pH 7.468 (7.340-7.450)
[2021-04-06 07:35] LABS: PO2 54.8 mmHg (75.0-100.0)
--- NOTE | 2021-04-06 18:51 | NUR ---
Pt started on Precedex and Levophed gtts; remains on Fentanyl and Versed gtts. Precedex at 0.8 mcg/kg/hr; Levophed at 2 mcg/min; Fentanyl at 75 mcg/hr; and Versed at 2 mg/hr. D5W added today per Dr. Madrid, running at 50 ml/hr. Pt sedated and appears to be tolerating tube/vent well. Turned q2h. OG remains to LIS, may be starting TF tomorrow. Leti ballesteros dark april/yellow urine. VSS. Updated and daughters on pt condition. Will continue to monitor.
[2021-04-07] VITALS (24 sets, daily range): BP systolic 88–118; BP diastolic 58–84
--- NOTE | 2021-04-07 00:53 | NUR ---
ASSUMED CARE OF PT AT 1900. VSRonda TURNER. NO SIGNS OF PAIN. PT IS INTUBATED AND ON VENTILATOR. SETTINGS AT THIS TIME ARE PC 18, RR 14, PEEP 10 AND 45% FIO2. PT IS IN SINUS RYTHM ON THE TELEMETRY. PT IS SLEEPING COMFORTABLY. RESPIRATIONS ARE EVEN AND NONLABORED. WILL CONTINUE TO MONITOR PT.
[2021-04-07 03:27] LABS: ABSOLUTE LYMPHOCYTES 0.1 thou/uL (0.8-5.3); ABSOLUTE MONOCYTES 0.3 thou/uL (0.0-1.2); ABSOLUTE NEUTROPHILS 9.6 thou/uL (1.6-8.1); BASOPHILS 0.2 %; HEMATOCRIT 38.7 % (42.0-52.0); HEMOGLOBIN 12.9 gm/dL (14.0-18.0); LYMPHOCYTES 1.4 %; MCH 31.6 pg (26.0-34.0); MCHC 33.2 g/dL (28.0-37.0); MCV 95.2 fL (80.0-100.0); MONOCYTES 2.6 %; NUCLEATED RBCS 0 /100WBC; PLATELET COUNT* 179 thou/uL (150-400); POLYS 95.8 %; WBC 10.1 thou/uL (4.0-11.0)
[2021-04-07 03:35] LABS: RBC 4.08 mil/uL (4.50-6.00)
[2021-04-07 03:49] LABS: ALBUMIN 2.1 g/dL (3.4-5.0); CALCIUM 7.7 mg/dL (8.5-10.1); CREATININE 1.1 mg/dL (0.6-1.3); MAGNESIUM 2.7 mg/dL (1.8-2.4); POTASSIUM 4.3 mmol/L (3.5-5.1); TOTAL BILIRUBIN 0.4 mg/dL (<0.1-1.0); TOTAL PROTEIN 5.8 g/dL (6.4-8.2)
[2021-04-07 08:29] LABS: BE 1.7 mmol/L (-2 to +3); PCO2 41.8 mmHg (35.0-45.0); pH 7.418 (7.340-7.450)
[2021-04-07 08:42] LABS: PO2 57.3 mmHg (75.0-100.0)
--- NOTE | 2021-04-07 12:53 | EKG ---
[place] [address] ELECTROCARDIOGRAM REPORT Name: ABBY BEAR Room: [address] ADM IN .R.#: [id number] Admission: 03/31/21 Attend Phys: Taiwo Nguyen, Discharge: Date of : 49 Date of Service: 04/07/21 1028 Report #: [id number] THIS REPORT FOR: //name// [facility] Test Date: 2021-04-07 Test Time: 10:28:19 Pat Name: ABBY BEAR Department: Room: [facility] Gender: M Supervisor Dumping: DORINA : 1945 Requested By: Juan José Connell Order Number: [id number] MD: Nigel Alvarenga Measurements Intervals [place] Rate: 86 P: 53 WA: 131 QRS: -64 QRSD: 98 T: 64 QT: 372 QTc: 445 Interpretive Statements Sinus rhythm Ventricular premature complex Left anterior fascicular block Low voltage, precordial leads Abnormal R-wave progression, late transition Compared to ECG 03/31/2021 14:43:44 Ventricular premature complex(es) now present Low QRS voltage now present Sinus tachycardia no longer present Myocardial infarct finding no longer present Electronically Signed On 04-07-2021 12:52:58 CDT by Nigel Alvarenga [email or web address] <ELECTRONICALLY SIGNED> By: Nigel Alvarenga MD, [facility] 04/07/21 1252 1028 1028 Nigel Alvarenga MD, [facility] /EPI
--- NOTE | 2021-04-07 15:59 | NUR ---
Pt intubated on vent. Covid positive.
[2021-04-07 16:42] LABS: HEMATOCRIT 40.4 % (42.0-52.0); HEMOGLOBIN 13.5 gm/dL (14.0-18.0); MCH 31.7 pg (26.0-34.0); MCHC 33.3 g/dL (28.0-37.0); MCV 95.2 fL (80.0-100.0); NUCLEATED RBCS 0 /100WBC; PLATELET COUNT* 147 thou/uL (150-400); RBC 4.25 mil/uL (4.50-6.00); RDW-CV 13.1 % (10.5-14.5); WBC 10.5 thou/uL (4.0-11.0)
[2021-04-07 16:45] LABS: CALCIUM 7.8 mg/dL (8.5-10.1); POTASSIUM 4.2 mmol/L (3.5-5.1)
[2021-04-07 16:46] LABS: MAGNESIUM 2.7 mg/dL (1.8-2.4)
[2021-04-07 16:57] LABS: BE -1.9 mmol/L (-2 to +3); PCO2 35.5 mmHg (35.0-45.0); pH 7.412 (7.340-7.450)
[2021-04-07 17:21] LABS: ABSOLUTE LYMPHOCYTES 0.1 thou/uL (0.8-5.3); ABSOLUTE MONOCYTES 0.2 thou/uL (0.0-1.2); ABSOLUTE NEUTROPHILS 10.2 thou/uL (1.6-8.1); PLATELET ESTIMATE ADEQUATE
[2021-04-08] VITALS (20 sets, daily range): BP systolic 77–138; BP diastolic 42–89
[2021-04-08 03:48] LABS: ABSOLUTE LYMPHOCYTES 0.1 thou/uL (0.8-5.3); BASOPHILS 0.2 %; HEMATOCRIT 40.1 % (42.0-52.0); HEMOGLOBIN 13.3 gm/dL (14.0-18.0); LYMPHOCYTES 1.3 %; MCH 31.4 pg (26.0-34.0); MCHC 33.1 g/dL (28.0-37.0); MCV 94.8 fL (80.0-100.0); MONOCYTES 0.4 %; MPV 9.1 fl. (7.2-11.1); NUCLEATED RBCS 0 /100WBC; PLATELET COUNT* 140 thou/uL (150-400); POLYS 98.1 %; RBC 4.22 mil/uL (4.50-6.00); WBC 7.1 thou/uL (4.0-11.0)
[2021-04-08 04:05] LABS: ALBUMIN 1.8 g/dL (3.4-5.0); CALCIUM 7.6 mg/dL (8.5-10.1); MAGNESIUM 2.6 mg/dL (1.8-2.4); POTASSIUM 3.9 mmol/L (3.5-5.1); TOTAL BILIRUBIN 0.5 mg/dL (<0.1-1.0); TOTAL PROTEIN 5.6 g/dL (6.4-8.2)
--- NOTE | 2021-04-08 05:10 | NUR ---
Patient continues to be intubated and sedated. Requiring more oxygen at 100% fio2. Not following commands but withdrawing to pain. Landeros in place and patent. Left IJ Inplace and patent. Lungs diminished. oral care completed. Patient nolonger requiring levo. notified of gurgling noise around ET tube. Will continue to care.
[2021-04-08 09:16] LABS: BE -3.3 mmol/L (-2 to +3)
[2021-04-08 09:22] LABS: PO2 45.6 mmHg (75.0-100.0)
--- NOTE | 2021-04-08 15:35 | NUR ---
Pt on vent. Covid positive. Fio2 100%
[2021-04-08 18:57] LABS: CALCIUM 7.5 mg/dL (8.5-10.1); CREATININE 1.2 mg/dL (0.6-1.3); MAGNESIUM 2.3 mg/dL (1.8-2.4); POTASSIUM 4.8 mmol/L (3.5-5.1)
[2021-04-08 23:48] LABS: HEMATOCRIT 39.5 % (42.0-52.0); HEMOGLOBIN 12.9 gm/dL (14.0-18.0); MCH 31.4 pg (26.0-34.0); MCHC 32.6 g/dL (28.0-37.0); MCV 96.1 fL (80.0-100.0); MPV 9.5 fl. (7.2-11.1); NUCLEATED RBCS 0 /100WBC; PLATELET COUNT* 146 thou/uL (150-400); RBC 4.11 mil/uL (4.50-6.00); RDW-CV 13.3 % (10.5-14.5)
[2021-04-08 23:51] LABS: CALCIUM 6.6 mg/dL (8.5-10.1); CREATININE 1.2 mg/dL (0.6-1.3)
[2021-04-08 23:54] LABS: PROTIME 21.9 Seconds (9.20-11.50)
[2021-04-08 23:55] LABS: POTASSIUM 3.8 mmol/L (3.5-5.1)
[2021-04-08 23:56] LABS: INR 2.2
[2021-04-09] VITALS (25 sets, daily range): BP systolic 57–266; BP diastolic 37–112
[2021-04-09 00:36] LABS: ABSOLUTE LYMPHOCYTES 0.2 thou/uL (0.8-5.3); ABSOLUTE MONOCYTES 0.1 thou/uL (0.0-1.2); ABSOLUTE NEUTROPHILS 3.8 thou/uL (1.6-8.1); PLATELET ESTIMATE DECREASED
[2021-04-09 00:38] LABS: LARGE PLATELETS FEW; TOXIC GRANULATION 1+
[2021-04-09 02:28] LABS: BE -13.1 mmol/L (-2 to +3); PCO2 34.4 mmHg (35.0-45.0)
[2021-04-09 02:31] LABS: PO2 37.1 mmHg (75.0-100.0); pH 7.216 (7.340-7.450)
--- NOTE | 2021-04-09 03:44 | NUR ---
Around 2300 pt went into Afib RVR, hypotensive. Pt was in prone position with significant new subqutaneous edema on the posterior left upper back, pt was changed to supine position, Titrated levophed to max, stat cxr, ekg and labs done. Cardizem started per orders and titrated per protocol. pt persisted in afib rate uncontrolled, digoxin given per orders. Levo, cardizem maxed out, pt well sedated was moved to ICU 3 on the ventilator with RT's present.Report given to Rajat ALONSO.
[2021-04-09 05:39] LABS: ABSOLUTE LYMPHOCYTES 0.2 thou/uL (0.8-5.3); ABSOLUTE MONOCYTES 0.1 thou/uL (0.0-1.2); ABSOLUTE NEUTROPHILS 4.3 thou/uL (1.6-8.1); BASOPHILS 0.1 %; EOSINOPHILS 0.2 %; HEMATOCRIT 44.2 % (42.0-52.0); HEMOGLOBIN 14.6 gm/dL (14.0-18.0); MCH 31.9 pg (26.0-34.0); MCHC 33.1 g/dL (28.0-37.0); MCV 96.2 fL (80.0-100.0); MONOCYTES 1.8 %; MPV 9.8 fl. (7.2-11.1); NUCLEATED RBCS 0 /100WBC; PLATELET COUNT* 183 thou/uL (150-400); POLYS 92.9 %; RBC 4.59 mil/uL (4.50-6.00); RDW-CV 13.3 % (10.5-14.5); WBC 4.7 thou/uL (4.0-11.0)
[2021-04-09 05:55] LABS: ALBUMIN 1.4 g/dL (3.4-5.0); CALCIUM 7.3 mg/dL (8.5-10.1); CREATININE 1.7 mg/dL (0.6-1.3); MAGNESIUM 2.2 mg/dL (1.8-2.4); POTASSIUM 3.7 mmol/L (3.5-5.1); TOTAL BILIRUBIN 0.8 mg/dL (<0.1-1.0); TOTAL PROTEIN 5.4 g/dL (6.4-8.2)
--- NOTE | 2021-04-09 08:04 | NUR ---
CARE WITHDRAWN FROM PATIENT AT 0803. FAMILY AT BEDSIDE, PRESSORS SHUT OFF AND PATIENT WAS EXTUBATED BY RT. MONITORING IN PLACE.
--- NOTE | 2021-04-09 08:25 | NUR ---
PATIENT AT 806
--- NOTE | 2021-04-09 09:04 | NUR ---
PATIENT ARRIVED TO ICU AT 0147 ON VENTILATOR TRANSPORTED BY RN'S AND RT'S. PATIENT IN AFIB RVR UPON ARRIVAL AND WAS PLACED ON AMIODARONE GTT. PATIENT TOOK 2 HOURS TO CONVERT TO SR. WHEN PATIENT CONVERTED, HE WAS UNABLE TO MAINTAIN ADEQUATE BLOOD PRESSURE WHILE MAXED ON LEVO AND NEOSYNEPHRINE. BLOOD PRESSURE DROPPED AND PULSE WAS LOST. CODE BLUE ACTIVATED. SEE CODE RECORD FOR DETAILS. ROSC ACHEIVED IN 10 MINUTES. FAMILY WAS CALLED AND GIVEN UPDATES ON THE SITUATION. PATIENT'S AND DAUGHTERS CAME TO THE HOSPITAL AND SPOKE WITH SURESH ALONSO AND LEO ALONSOBARREL LATHE OPERATOR OUTSIDE ON THE PATIENT'S CONDITION. FAMILY HELD A MEETING IN THE WAITING ROOM TO DISCUSS PLANS FOR THE PATIENT. FAMILY SPOKE WITH ME AND UNANIMOUSLY AGREED TO WITHDRAW CARE FROM THE PATIENT AND PLACE HIM ON COMFORT CARE. PATIENT REMAINED HYPOXIC SINCE ADMISSION TO THE UNIT. O2 SAT WAS NEVER HIGHER THAN 82%. DR. ORTIZ NOTIFIED OF THE FAMILIES INTENT TO WITHDRAW CARE. ORDERS OBTAINED FOR COMFORT CARE. DR. ORTIZ ARRIVED TO THE HOSPITAL AND SPOKE WITH THE FAMILY REGARDING COMFORT CARE. FAMILY STILL WISHED TO PROCEED WITH COMFORT CARE. PATIENT WAS EXTUBATED AND ALL VASOPRESSORS STOPPED AT 0802. FAMILY AT BEDSIDE WHILE PATIENT PASSED. TIME OF AT 0807, PRONOUNCED BY SURESH DESIR RN AND ANGELICA JOHNSON RN. ALL CONSULTS CALLED, MTN NOTIFIED. PATIENT NOT ELIGIBLE FOR ANY KIND OF DONATION. HOME NOTIFIED. THANK YOU FOR ALLOWING ME TO PARTICIPATE IN THIS PATIENT'S CARE.
--- NOTE | 2021-04-09 09:49 | EKG ---
[place] [address] ELECTROCARDIOGRAM REPORT Name: ABBY BEAR Room: [address] ADM IN M.R.#: [id number] Admission: 03/31/21 Attend Phys: Taiwo Nguyen, Discharge: Date of : 49 Date of Service: 04/09/21 0348 Report #: [id number] THIS REPORT FOR: //name// [facility] Test Date: 2021-04-09 Test Time: 03:48:51 Pat Name: ABBY BEAR Department: Room: [address] Gender: M [address] Reporter: FAWN : 1945 Requested By: Radha Bergman Order Number: [id number] Zacarias MD: Nigel Alvarenga Measurements Intervals [place] Rate: 119 P: 38 WA: 131 QRS: 266 QRSD: 109 T: 49 QT: 359 QTc: 506 Interpretive Statements Sinus tachycardia Left anterior fascicular block RBBB Prolonged QT interval Baseline wander in lead(s) V1,V3,V6 Compared to ECG 04/07/2021 10:28:19 Prolonged QT interval now present Sinus rhythm no longer present Ventricular premature complex(es) no longer present Electronically Signed On 04-09-2021 9:49:26 CDT by Nigel Alvarenga [email or web address] <ELECTRONICALLY SIGNED> By: Nigel Alvarenga MD, [facility] 04/09/21 0949 7 7 Nigel Alvarenga MD, [facility] /EPI
--- NOTE | 2021-04-11 16:35 | EKG ---
[place] [address] ELECTROCARDIOGRAM REPORT Name: ABBY BEAR Room: [address] DIS IN M.R.#: [id number] Admission: 03/31/21 Attend Phys: Taiwo Nguyen, Discharge: 04/09/21 Date of : 49 Date of Service: 04/08/21 2311 Report #: [id number] THIS REPORT FOR: //name// [facility] Test Date: 2021-04-08 Test Time: 23:11:59 Pat Name: ABBY BEAR Department: Room: [address] Gender: M Slide Maker: / : 1945 Requested By: Radha Bergman Order Number: [id number] Reading MD: Nigel Alvarenga Measurements Intervals [place] Rate: 191 P: CT: QRS: -61 QRSD: 106 T: 61 QT: 275 QTc: 491 Interpretive Statements Atrial fibrillation with rapid V-rate Abnormal R-wave progression, late transition Inferior infarct, old nonspecific st segment changes Compared to ECG 04/07/2021 10:28:19 Sinus rhythm no longer present Electronically Signed On 04-11-2021 16:35:00 CDT by Nigel Alvarenga [email or web address] <ELECTRONICALLY SIGNED> By: Nigel Alvarenga MD, [facility] 04/11/21 1635 10 10 Nigel Alvarenga MD, [facility] /EPI
== END 2021-04-09 08:07 | DRG 871 ==
LOC: M.ERS 14:43 → M.ORTHSURG 15:14 → M.TBA-ER 15:14 → M.ORTHSURG 16:30 → M.ICU 04-09 02:07
PROVIDERS: Family Medicine; Internal Medicine; Internal Medicine Critical Care Medicine; ADMIT Internal Medicine; ATTEND Internal Medicine
PROC: 5A0935A Assistance with Respiratory Ventilation, Less than 24 Consecutive Hours, High Flow/Velocity Cannula (ICD-10-PCS; principal; 2021-03-31)
PROC: XW033E5 Introduction of Remdesivir Anti-infective into Peripheral Vein, Percutaneous Approach, New Technology Group 5 (ICD-10-PCS; principal; 2021-03-31)
PROC: 5A0935A Assistance with Respiratory Ventilation, Less than 24 Consecutive Hours, High Flow/Velocity Cannula (ICD-10-PCS; 2021-04-01)
PROC: XW13325 Transfusion of Convalescent Plasma (Nonautologous) into Peripheral Vein, Percutaneous Approach, New Technology Group 5 (ICD-10-PCS; 2021-04-02)
PROC: 5A09357 Assistance with Respiratory Ventilation, Less than 24 Consecutive Hours, Continuous Positive Airway Pressure (ICD-10-PCS; 2021-04-03)
PROC: 5A0935A Assistance with Respiratory Ventilation, Less than 24 Consecutive Hours, High Flow/Velocity Cannula (ICD-10-PCS; 2021-04-03)
PROC: 5A09357 Assistance with Respiratory Ventilation, Less than 24 Consecutive Hours, Continuous Positive Airway Pressure (ICD-10-PCS; 2021-04-04)
PROC: 5A0935A Assistance with Respiratory Ventilation, Less than 24 Consecutive Hours, High Flow/Velocity Cannula (ICD-10-PCS; 2021-04-04)
PROC: 0BH17EZ Insertion of Endotracheal Airway into Trachea, Via Natural or Artificial Opening (ICD-10-PCS; 2021-04-05)
PROC: 5A0935A Assistance with Respiratory Ventilation, Less than 24 Consecutive Hours, High Flow/Velocity Cannula (ICD-10-PCS; 2021-04-05)
PROC: 5A09357 Assistance with Respiratory Ventilation, Less than 24 Consecutive Hours, Continuous Positive Airway Pressure (ICD-10-PCS; 2021-04-05)
PROC: 02HV33Z Insertion of Infusion Device into Superior Vena Cava, Percutaneous Approach (ICD-10-PCS; 2021-04-05)
PROC: 5A1945Z Respiratory Ventilation, 24-96 Consecutive Hours (ICD-10-PCS; 2021-04-05)
DX: A41.89 Other specified sepsis (principal); U07.1 COVID-19; J80 Acute respiratory distress syndrome; J12.82 Pneumonia due to coronavirus disease 2019; J15.8 Pneumonia due to other specified bacteria; M62.82 Rhabdomyolysis; J93.9 Pneumothorax, unspecified; J98.2 Interstitial emphysema; Z88.1 Allergy status to other antibiotic agents; Z79.899 Other long term (current) drug therapy; Z51.5 Encounter for palliative care